=== PATIENT | male | born 1985 | race Caucasian/White ===

== ENCOUNTER 2021-01-20 22:19 | Emergency (ER) | payer MEDICAID ==
[~2021-01-20] VITALS: Ht 170.2 cm; Wt 90.7 kg
[2021-01-20 22:28] VITALS: BP 140/92
[2021-01-20] MEDS ORDERED: KETOROLAC 60 MG/2 ML VIAL IM ONE (22:45)
[2021-01-20 23:03] LABS: APPEARANCE,URINE CLEAR (CLEAR); BILIRUBIN,URINE NEGATIVE (NEGATIVE); COLOR,URINE YELLOW (YELLOW); LEUKOCYTE ESTERASE ,URINE NEGATIVE (NEGATIVE); NITRITE, URINE NEGATIVE (NEGATIVE); UGLUCOSE NEGATIVE (NEGATIVE)
[2021-01-20 23:04] LABS: BLOOD, URINE TRACE (NEGATIVE)
[2021-01-20 23:13] LABS: RBC,URINE 0-5 /HPF (0-5); URINE AMORPHOUS URATE 1+ /HPF (None Seen); WBC,URINE 0-5 /HPF (0-5)
[2021-01-21] MEDS ORDERED: cefTRIAXone 500 MG in LIDOCAINE MPF 1% 1 ML IM ONE ×2 (00:10→00:25)
[2021-01-21] MEDS ORDERED: DOXY-487 PO (00:14)
[2021-01-21] MEDS ORDERED: cefTRIAXone 500 MG VIAL ONE (00:15)
[2021-01-21] MEDS ORDERED: LIDOCAINE MPF 1% 5 ML ONE (00:16)
[2021-01-21 00:25] VITALS: BP 140/92
== END 2021-01-21 00:25 | disposition home or self-care (01) ==
LOC: MED 22:19
DX: N45.2 Orchitis (principal); E78.00 Pure hypercholesterolemia, unspecified; I10 Essential (primary) hypertension; Z79.899 Other long term (current) drug therapy
CPT/HCPCS: 36415; 76870; 81001; 87491; 96372; 99284; J0696; J1885; J2001

== ENCOUNTER 2021-06-09 18:39 | Emergency (ER) | payer MEDICAID ==
[~2021-06-09] VITALS: Ht 170.2 cm; Wt 90.7 kg
[~2021-06-09 18:39] MED LIST: DOXY-487 PO
[2021-06-09 18:48] VITALS: BP 153/63
--- NOTE | 2021-06-09 18:51 | NUR ---
PT TO AWAIT IN LOBBY
--- NOTE | 2021-06-09 19:25 | NUR ---
PT AMBULATED TO BED, STEADY GAIT
--- NOTE | 2021-06-09 19:28 | NUR ---
Dr. River examining patient.
--- NOTE | 2021-06-09 19:42 | NUR ---
PATIENT TO THE BATHROOM FOR URINE COLLECTION.
--- NOTE | 2021-06-09 19:52 | NUR ---
SENT URINE TO LAB, RECEIVED BY [employer]AN [employer]ICAL [employer]ICE ENGINEER
--- NOTE | 2021-06-09 20:01 | NUR ---
Ultrasound at bedside
[2021-06-09 20:07] LABS: APPEARANCE,URINE CLEAR (CLEAR); BILIRUBIN,URINE NEGATIVE (NEGATIVE); BLOOD, URINE TRACE-I (NEGATIVE); COLOR,URINE YELLOW (YELLOW); LEUKOCYTE ESTERASE ,URINE NEGATIVE (NEGATIVE); NITRITE, URINE NEGATIVE (NEGATIVE); UGLUCOSE NEGATIVE (NEGATIVE)
[2021-06-09] MEDS ORDERED: IBUP-1842 PO (21:15)
[2021-06-09 21:19] VITALS: BP 159/107
--- NOTE | 2021-06-09 21:19 | NUR ---
Patient discharged with v/s stable. Written and verbal after care instructions given and explained. Patient verbalized understanding. Ambulatory with steady gait. ID band remove. All questions addressed prior to discharge. Advised to follow up with PMD.
--- NOTE | 2021-06-09 21:19 | NUR ---
ERMD aware of BP for patient and is comfortable for patient to go home
[2021-06-09 21:39] LABS: RBC,URINE 0-5 /HPF (0-5); WBC,URINE NONE SEEN /HPF (0-5)
== END 2021-06-09 21:19 | disposition home or self-care (01) ==
LOC: MED 18:39
DX: N50.811 Right testicular pain (principal); I10 Essential (primary) hypertension; Z79.1 Long term (current) use of non-steroidal anti-inflammatories (NSAID); Z79.2 Long term (current) use of antibiotics
CPT/HCPCS: 36415; 76870; 81001; 87491; 99284; Q0092

== ENCOUNTER 2021-12-23 18:16 | Emergency (ER) | payer MEDICAID ==
[~2021-12-23] VITALS: Ht 172.7 cm; Wt 98.9 kg
[~2021-12-23 18:16] MED LIST changes: +IBUP-1842 PO
[2021-12-23 18:38] VITALS: BP 177/143
[2021-12-23] MEDS ORDERED: KETOROLAC 60 MG/2 ML VIAL IM ONE (18:45)
--- NOTE | 2021-12-23 18:49 | NUR ---
PT AMBULATED TO ER BED 7
--- NOTE | 2021-12-23 19:18 | NUR ---
REPORT GIVEN TO RIK SILVER . TRANSFER OF CARE
--- NOTE | 2021-12-23 19:20 | NUR ---
36 Y/O MALE C/O GROIN PAIN RADIATES TO RIGHT TESTICLE 04/19 X1 WEEK. DENIES FEVER/CHILLS. DENIES N/V. DENIES HEMATURIA. PMH: KRZYSZTOF QUIÑONES
--- NOTE | 2021-12-23 19:30 | NUR ---
US AT BEDSIDE
[2021-12-23 19:51] LABS: APPEARANCE,URINE CLEAR (CLEAR); BILIRUBIN,URINE NEGATIVE (NEGATIVE); BLOOD, URINE 1+ (NEGATIVE); COLOR,URINE YELLOW (YELLOW); LEUKOCYTE ESTERASE ,URINE NEGATIVE (NEGATIVE); NITRITE, URINE NEGATIVE (NEGATIVE); UGLUCOSE NEGATIVE (NEGATIVE)
--- NOTE | 2021-12-23 19:52 | NUR ---
PT MADE AWARE THAT US AND LAB WORK IS STILL PENDING
[2021-12-23 20:06] LABS: RBC,URINE 0-5 /HPF (0-5); WBC,URINE 0-5 /HPF (0-5)
[2021-12-23] MEDS ORDERED: NACL 0.9% 1,000 ML IV SCH (20:25)
[2021-12-23 20:39] LABS: BASOPHILS % (AUTO) 0.5 % (0.0-2.0); EOSINOPHILS # (AUTO) 0.1 K/uL (0-0.4); EOSINOPHILS % (AUTO) 1.4 % (0.0-4.0); HEMATOCRIT 46.3 % (36-52); HEMOGLOBIN 16.2 g/dL (12.0-18.0); LYMPHOCYTES # (AUTO) 3.5 K/uL (2.0-11.5); LYMPHOCYTES % (AUTO) 37.8 % (20.5-51.1); MEAN CORPUSCULAR HEMOGLOBIN 31 pg (27-31); MEAN CORPUSCULAR HGB CONC 35 g/dL (33-37); MEAN CORPUSCULAR VOLUME 87.1 fL (80-94); MONOCYTES # (AUTO) 0.8 K/uL (0.8-1.0); NEUTROPHILS # (AUTO) 4.8 K/uL (1.8-7.7); NEUTROPHILS % (AUTO) 51.3 % (42.2-75.2); PLATELET COUNT (AUTO) 251 K/uL (140-450); RED BLOOD CELL COUNT(AUTO) 5.31 MIL/uL (4.20-6.10); RED CELL DISTRIBUTION WIDTH 13.5 % (11.6-13.7); WHITE BLOOD COUNT (AUTO) 9.3 K/uL (4.8-10.8)
[2021-12-23 20:51] LABS: ANION GAP 10.2 (8-16); CARBON DIOXIDE 29.7 mmol/L (21-32); CREATININE 1.3 mg/dL (0.6-1.3); POTASSIUM 3.9 mmol/L (3.5-5.1); TOTAL BILIRUBIN 0.4 mg/dL (0.0-1.0)
[2021-12-23] MEDS ORDERED: IBUP-2213 PO (22:09)
[2021-12-23 22:23] VITALS: BP 145/92
== END 2021-12-23 22:23 | disposition home or self-care (01) ==
LOC: MED 18:16
DX: N50.811 Right testicular pain (principal); R42 Dizziness and giddiness; Z79.1 Long term (current) use of non-steroidal anti-inflammatories (NSAID); Z79.2 Long term (current) use of antibiotics
CPT/HCPCS: 36415; 74176; 76870; 80053; 81001; 83690; 85025; 96372; 99284; J1885; J7030; Q0092

== ENCOUNTER 2022-08-23 13:29 | Emergency (ER) | payer MEDICAID ==
[~2022-08-23] VITALS: Ht 170.2 cm; Wt 98.9 kg
[~2022-08-23 13:29] MED LIST changes: +IBUP-2213 PO
[2022-08-23 13:35] VITALS: BP 138/89
--- NOTE | 2022-08-23 13:43 | NUR ---
HERE FOR DIZZINESS AND CP, EKG REQUESTED
--- NOTE | 2022-08-23 13:54 | NUR ---
37 Y/O MALE BIB SELF C/O MID CHEST PAIN INTERMITTENT X3DAYS WITH INCREASED PAIN WHEN BREATHING AND COUGHING. DENIES ANY NV, ELIAS. STATES SOME DIZZINESS TODAY BUT DENIES DIZZINESS AT THIS TIME NKA PMH: HTN
--- NOTE | 2022-08-23 14:22 | NUR ---
SWABS WALKED AND HANDED TO LAB
[2022-08-23 14:41] LABS: BASOPHILS # (AUTO) 0.1 K/uL (0.00-0.22); BASOPHILS % (AUTO) 0.9 % (0.0-2.0); EOSINOPHILS # (AUTO) 0.2 K/uL (0-0.4); HEMATOCRIT 47.2 % (36-52); LYMPHOCYTES # (AUTO) 3.2 K/uL (2.0-11.5); LYMPHOCYTES % (AUTO) 38.3 % (20.5-51.1); MEAN CORPUSCULAR HEMOGLOBIN 31 pg (27-31); MEAN CORPUSCULAR HGB CONC 36 g/dL (33-37); MEAN CORPUSCULAR VOLUME 87.3 fL (80-94); MONOCYTES # (AUTO) 0.6 K/uL (0.8-1.0); MONOCYTES % (AUTO) 7.7 % (1.7-9.3); NEUTROPHILS # (AUTO) 4.2 K/uL (1.8-7.7); NEUTROPHILS % (AUTO) 51.1 % (42.2-75.2); PLATELET COUNT (AUTO) 261 K/uL (140-450); RED BLOOD CELL COUNT(AUTO) 5.41 MIL/uL (4.20-6.10); RED CELL DISTRIBUTION WIDTH 12.8 % (11.6-13.7); WHITE BLOOD COUNT (AUTO) 8.3 K/uL (4.8-10.8)
[2022-08-23 15:00] LABS: ALBUMIN 4.7 g/dL (3.4-5.0); ANION GAP 13.1 (8-16); ASPARTATE AMINOTRANSFERASE 43 U/L (15-37); CARBON DIOXIDE 29.7 mmol/L (21-32); CHLORIDE 100 mmol/L (98-107); CREATININE 0.9 mg/dL (0.6-1.3); GFR ARICAN-AMERICAN 123 mL/min (>90); GLUCOSE 100 mg/dL (74-106); POTASSIUM 3.8 mmol/L (3.5-5.1); SODIUM SERUM 139 mmol/L (136-145); TOTAL BILIRUBIN 0.6 mg/dL (0.0-1.0); UREA NITROGEN, BLOOD 8 mg/dL (7-18)
[2022-08-23] MEDS ORDERED: MECL-303 PO (16:16)
[2022-08-23] MEDS ORDERED: EMLAC TP (16:16)
[2022-08-23] MEDS ORDERED: ACET-2619 PO (16:16)
[2022-08-23 16:38] VITALS: BP 137/76
--- NOTE | 2022-08-23 16:39 | NUR ---
Patient discharged with v/s stable. Written and verbal after care instructions given and explained. Patient verbalized understanding. Ambulatory with steady gait. All questions addressed prior to discharge. Advised to follow up with PMD.
== END 2022-08-23 16:39 | disposition home or self-care (01) ==
LOC: MED 13:29
DX: R07.9 Chest pain, unspecified (principal); Z20.822 Contact with and (suspected) exposure to COVID-19; F41.9 Anxiety disorder, unspecified; I10 Essential (primary) hypertension; Z79.899 Other long term (current) drug therapy
CPT/HCPCS: 36415; 80053; 84484; 85025; 93005; 99284

== ENCOUNTER 2023-01-21 21:19 | Emergency (ER) | payer MEDICAID ==
[~2023-01-21] VITALS: Ht 170.2 cm; Wt 100.7 kg
[~2023-01-21 21:19] MED LIST changes: +ACET-2619 PO; +EMLAC TP; +MECL-303 PO
[2023-01-21 21:20] VITALS: BP 151/90
--- NOTE | 2023-01-21 21:23 | NUR ---
TO LOBBY A/W BED AMBULATORY
--- NOTE | 2023-01-21 21:59 | NUR ---
PT TAKEN TO ULTRASOUND
--- NOTE | 2023-01-21 22:12 | NUR ---
PT RETURN FROM ULTRASOUND TO ER BED 7
--- NOTE | 2023-01-21 22:15 | NUR ---
Dr. Abad examining patient.
[2023-01-21 22:32] LABS: APPEARANCE,URINE CLEAR (CLEAR); BILIRUBIN,URINE NEGATIVE (NEGATIVE); BLOOD, URINE 1+ (NEGATIVE); COLOR,URINE YELLOW (YELLOW); LEUKOCYTE ESTERASE ,URINE NEGATIVE (NEGATIVE); NITRITE, URINE NEGATIVE (NEGATIVE); PH,URINE 6.5 (5.0-9.0); UGLUCOSE NEGATIVE (NEGATIVE)
[2023-01-21] MEDS ORDERED: DOXY-690 PO (23:14)
[2023-01-21] MEDS ORDERED: IBUP-2213 PO (23:14)
[2023-01-21] MEDS ORDERED: KETOROLAC 30 MG/ML VIAL IM ONE (23:15)
[2023-01-21] MEDS ORDERED: cefTRIAXone 500 MG in LIDOCAINE MPF 1% 1 ML IM ONE (23:15)
[2023-01-21] MEDS ORDERED: DOXYCYCLINE 100 MG CAP PO SCH (23:15)
[2023-01-21] MEDS ORDERED: cefTRIAXone 500 MG VIAL ONE (23:18)
[2023-01-21] MEDS ORDERED: LIDOCAINE MPF 1% 5 ML ONE (23:19)
[2023-01-21 23:30] VITALS: BP 151/90
--- NOTE | 2023-01-21 23:56 | NUR ---
Patient discharged with v/s stable. Written and verbal after care instructions given and explained. Patient alert, oriented and verbalized understanding of instructions. Ambulatory with steady gait. All questions addressed prior to discharge. ID band removed. Patient advised to follow up with PMD. Rx of ibuprofen and doxyclycline given. Patient educated on indication of medication including possible reaction and side effects. Opportunity to ask questions provided and answered.
== END 2023-01-21 23:56 | disposition home or self-care (01) ==
LOC: MED 21:19
DX: N45.1 Epididymitis (principal); I10 Essential (primary) hypertension; Z79.899 Other long term (current) drug therapy
CPT/HCPCS: 76870; 81001; 87491; 96372; 99285; J0696; J1885; J2001; Q0092; 99284

== ENCOUNTER 2023-02-10 08:12 | Emergency (ER) | payer MEDICAID ==
[~2023-02-10] VITALS: Ht 170.2 cm; Wt 100.7 kg
[~2023-02-10 08:12] MED LIST changes: +DOXY-690 PO
[2023-02-10 08:23] VITALS: BP 160/99; PULSE 85; RESP 18; TEMP 98; O2SAT 97
--- NOTE | 2023-02-10 08:46 | NUR ---
SEEN AND EVALUATED BY DR HATCH MSE COMPLETED.
--- NOTE | 2023-02-10 08:46 | NUR ---
ASSUMED PATIENT CARE, NURSING ASSESSMENT COMPLETED.
[2023-02-10] MEDS ORDERED: IBUP-1842 PO (08:52)
[2023-02-10 09:04] VITALS: BP 133/65; PULSE 80; RESP 18; TEMP 98; O2SAT 97
== END 2023-02-10 09:03 | disposition home or self-care (01) ==
LOC: MED 08:12
DX: H92.01 Otalgia, right ear (principal); R42 Dizziness and giddiness; H93.11 Tinnitus, right ear; I10 Essential (primary) hypertension; Z79.1 Long term (current) use of non-steroidal anti-inflammatories (NSAID); Z79.2 Long term (current) use of antibiotics; Z79.899 Other long term (current) drug therapy
CPT/HCPCS: 99282

== ENCOUNTER 2023-06-10 06:40 | Emergency (ER) | payer MEDICAID ==
[~2023-06-10] VITALS: Ht 170.2 cm; Wt 90.7 kg
[2023-06-10 06:50] VITALS: BP 152/91; PULSE 90; RESP 17; TEMP 97.9; O2SAT 99
== END 2023-06-10 07:57 | disposition home or self-care (01) ==
LOC: MED 06:40
DX: S91.331A Puncture wound without foreign body, right foot, initial encounter (principal); Z79.899 Other long term (current) drug therapy; Z79.1 Long term (current) use of non-steroidal anti-inflammatories (NSAID); Z79.2 Long term (current) use of antibiotics; W45.0XXA Nail entering through skin, initial encounter; Y92.009 Unspecified place in unspecified non-institutional (private) residence as the place of occurrence of the external cause; Y93.89 Activity, other specified; Y99.8 Other external cause status
CPT/HCPCS: 73630; 90471; 90715; 99283

== ENCOUNTER 2023-08-26 19:17 | Emergency (ER) | payer SELFPAY ==
[~2023-08-26] VITALS: Ht 170.2 cm; Wt 90.7 kg
[2023-08-26 19:25] VITALS: BP 135/78; PULSE 86; RESP 17; TEMP 98; O2SAT 98
[2023-08-26 21:45] VITALS: BP 135/78; PULSE 86; RESP 17; TEMP 98; O2SAT 98
== END 2023-08-26 21:45 | disposition home or self-care (01) ==
LOC: MED 19:17
DX: G44.209 Tension-type headache, unspecified, not intractable (principal); Z79.899 Other long term (current) drug therapy
CPT/HCPCS: 99281